=== PATIENT | female | born 1960 | race Caucasian/White ===

== ENCOUNTER 2022-03-27 15:29 | Emergency (ER) | payer OTHER, BC ==
[~2022-03-27] VITALS: Ht 154.9 cm; Wt 61.8 kg
[~2022-03-27 15:29] MED LIST: AZO TABS95 MG PO; CIPROFLOXACN500 MG PO; DIFLUCAN150 MG PO
[2022-03-27] MEDS ORDERED: AMOX/K CLAV875 M1 PO (18:00)
[2022-03-27] MEDS ORDERED: NAPROXEN500 MG PO (18:00)
[2022-03-27 18:07] VITALS: BP 123/81
== END 2022-03-27 18:30 | disposition home or self-care (01) | DRG 605 ==
LOC: ED 15:29
DX: S61.451A Open bite of right hand, initial encounter (principal); W54.0XXA Bitten by dog, initial encounter; Y92.89 Other specified places as the place of occurrence of the external cause; Y99.0 Civilian activity done for income or pay